=== PATIENT | female | born 1985 | race Caucasian/White ===

== ENCOUNTER 2024-05-13 07:35 | Inpatient (IN) | payer OTHER, SELFPAY ==
[2024-05-13] VITALS (22 sets, daily range): BP systolic 132–213; BP diastolic 82–114; BMI 39.5; BMI 39.0
[2024-05-13 08:34] LABS: % Basophils 0.5 % (0-2); % Eosinophils 0.5 % (0-6); % Immature Granulocytes 0.4 % (0-0.5); % Lymphocytes 19.9 % (20.5-51.1); % Monocytes 5.4 % (1.7-9.3); % Neutrophils 73.3 % (42.2-75.2); Absolute Basophils 0.1 10^3/uL (0-0.2); Absolute Eosinophils 0.1 10^3/uL (0-0.7); Absolute Lymphocytes 2.1 10^3/uL (1.2-3.4); Absolute Monocytes 0.6 10^3/uL (0.1-0.6); Absolute Neutrophils 7.8 10^3/uL (1.4-6.5); Hematocrit 36.7 % (37.0-47.0); Hemoglobin 12.3 g/dL (12.0-16.0); Mean Corp Hgb Conc. 33.5 g/dL (33.0-37.0); Mean Corpuscular Hgb 26.7 pg (27.0-31.0); Mean Corpuscular Volume 79.6 fL (81.0-99.0); Nucleated Red Blood Cells % 0 %; Platelet Count 195 10^3/uL (130-400); Red Blood Cell Count 4.61 10^6/uL (4.20-5.40); Red Cell Dist. Width 14.6 % (11.5-14.5); White Blood Cell Count 10.6 10^3/uL (4.8-10.8)
[2024-05-13] MEDS: TRANDATE 20 MG IV (08:40)
[2024-05-13] MEDS: MAGNESIUM SULFATE 100 IV (08:43)
[2024-05-13] MEDS: LR 1000 IV ×2 (08:46→15:30)
[2024-05-13] MEDS: TRANDATE 40 MG IV (08:53)
[2024-05-13 08:55] LABS: ALT (SGPT) 18 U/L (0-35); AST (SGOT) 35 U/L (14-36); Albumin 3.1 g/dl (3.5-5.0); Alkaline Phosphatase 176 U/L (38-126); Blood Urea Nitrogen 12 mg/dl (7-17); Calcium 8.8 mg/dl (8.4-10.2); Carbon Dioxide 17 mmol/L (22-30); Chloride 110 mmol/L (98-107); Estimated Creatinine Clearance 112 ml/min; Glucose 75 mg/dl (70-99); Potassium 4.9 mmol/L (3.5-5.1); Sodium 135 mmol/L (135-145); Total Bilirubin 0.3 mg/dl (0.2-1.3); Total Protein 6.1 g/dl (6.3-8.2); eGFR > 60.00
[2024-05-13] MEDS: MAGNESIUM SULFATE 40 GRAM 1000 IV (09:10)
[2024-05-13] MEDS: TRANDATE 80 MG IV (09:17)
[2024-05-13 09:20] LABS: Hepatitis B Surface Antigen Negative (Negative)
[2024-05-13] MEDS: APRESOLINE 10 MG IV (09:30)
[2024-05-13 09:36] LABS: Rubella Negative
[2024-05-13 09:37] LABS: Hepatitis C Antibody Negative (Negative)
[2024-05-13] MEDS: ANCEF 10 IV (10:07)
[2024-05-13] MEDS: BICITRA 30 ML PO (10:07)
[2024-05-13] MEDS: TYLENOL 1000 MG PO (10:07)
[2024-05-13 11:00] LABS: Amphetamines Negative (Negative); Barbiturates Negative (Negative); Benzodiazepines Negative (Negative); Buprenorphine Negative (Negative); Cocaine Negative (Negative); Marijuana Negative (Negative); Methadone Negative (Negative); Methamphetamines Negative (Negative); Opiates Negative (Negative); Phencyclidine Negative (Negative); Tricyclic Antidepressants Negative (Negative)
[2024-05-13] MEDS: PITOCIN 30 UNITS/NSS 500 ML IV (11:00)
[2024-05-13 11:46] LABS: Protein/creatinine Ratio 6.2; Urine Protein 470 mg/dl
--- NOTE | 2024-05-13 12:17 | CON.HOSP ---
Family Physician
-
Family Physician: Paola Hearn
Chief Complaint
-
Hypertension
History of Present Illness
39yo F with PMHx of GIST s/p resection came with 40weeks of for induction. Found hypertensive to 213/114. This is her first . BP was within normal limits during whole . Patient has no Hx of hypertension. On bedside
assessment - no visual changes, no headache, no SOB reported at the time of assessemnt as wwell as days prior. transaminases not elevated, however elevation of Alk.phos noted. Patient did not notice and RUQ pain. Had cesarian done and after subdural
- blood pressure improved to 130/70. Box Toe Maker called for assistance with BP control.
Patient received total dose of Labetalol 140mg and Hydralazine 10mg IV however with decrease of BP to 160/110
Medical History
Past Medical History
Past Medical History: Reports Other
Additional Past Medical History:
see HPI
Past Surgical History: Reports Other
Additional Past Surgical History:
See HPI
Social History
Tobacco: Non-smoker
Alcohol: None
Drug: None
Family History
Family History: Diabetes
Allergies / Home Medications
Allergies reflects when Allergies were last updated in [employer].
Home Medications with original date entered in [employer]
Allergy/Medication List:
Allergies
Allergy/AdvReac Type Severity Reaction Status Date / Time
No Known Allergies Allergy Verified 05/13/24 08:00
Home Medications
Vitamin 1 tab PO DAILY 05/13/24
Review of Systems
-
History Source: Patient
A 12 point Review of Systems was completed except as noted: Yes
Physical Exam
Vital Signs
Vital Signs
Temp Pulse Resp BP
97.7 F 77 20 198/105
05/13/24 08:02 05/13/24 09:30 05/13/24 08:02 05/13/24 09:30
Physical Exam
General: Well Developed, Well Nourished and No Apparent Distress
HEENT: Normocephalic, Anicteric and Moist Mucous Membranes
Respiratory: Clear; Negative Wheezes or Rales
Cardiac: S1/S2 and Regular Rhythm; Negative Tachycardia or Murmur
GI: Soft, Non Tender and Non Distended
Musculoskeletal: No Clubbing, No Cyanosis and No Edema
Skin: Warm; Negative Dry or Rash
Neuro: Awake, Alert, Oriented and AO x 3
Psych: Calm
Laboratory Results
-
Laboratory Results
05/13/24 08:24
05/13/24 08:24
Total Bilirubin 0.3 mg/dl (0.2-1.3) 05/13/24 08:24
AST 35 U/L (14-36) 05/13/24 08:24
ALT 18 U/L (0-35) 05/13/24 08:24
Alkaline Phosphatase 176 U/L (38-126) H 05/13/24 08:24
Data Reviewed
-
Lab Data: Labs Reviewed
Impression / Plan
-
A/P:
#Hypertensive urgency vs preeclampsia
With absent neurological symptoms
Magnesium infusion as per STEEPING PRESS TENDER
Since failed BB and hydralazine - start Nicardipine drip if BP still elevated to >160/105 to keep in 140-160 SBP range
Follow LFT, UA, BMP, CBC (monitor for thrombocytopenia)
Sodium restriction
Follow Mg level
#Elevated Alk.phos
US RUQ reasonable
#HAGMA
monitor BMP
#Obesity
Advise to establish weight loss plan
DVT ppx as per RAIL TRACK LAYER
FUll code
I have spent at least 78min reviewing chart, test results, communication with consultants anddirect patient care
[2024-05-13] MEDS: APRESOLINE 5 MG IV (14:27)
--- NOTE | 2024-05-13 15:26 | HPS.HSE ---
Family Physician
-
Family Physician: Paola Hearn
Chief Complaint
-
induction of labor
History of Present Illness
Patient is a 39yo @40.6 weeks who presents to labor and delivery for elective induction. On arrival, patient found to have BPs in the 200s/100s. She has no complaints. She denies headache, vision changes, chest pain, or shortness of breath or
RUQ pain. She has been having intermittent cramping, but no contractions. Denies VB or LOF. +FM.
complications:
- Transfer of care from [place] at 36wks- no records; likely lapses in care
- Advanced maternal age
- History of GIST tumor
- GBS positive
- Rubella non-immune
PMHx:GIST
Meds: denies
Surghx: GIST removed
NKDA
Socialhx: denies tobacco, etoh or illicit drug use
Famhx: non-contributory
OBHx:
labs: obtained on admission
Blood type: B+
UDS neg
HepBsAg neg
Rubella non-immune
GCCT neg
GBS positive
1hr never completed
Medical History
Past Medical History
Past Medical History: Reports Other
Additional Past Medical History:
GIST tumor
Past Surgical History: Reports Other
Additional Past Surgical History:
GIST tumor removed
Social History
Tobacco: Non-smoker
Alcohol: None
Drug: None
Family History
Family History: Not pertinent
Allergies / Home Medications
Allergies reflects when Allergies were last updated in [facility].
Home Medications with original date entered in [facility]
Allergy/Medication List:
NKDA
Meds: none
Review of Systems
-
A 12 point ROS was completed and negative except as noted: Yes
Physical Exam
Vital Signs
Vital Signs
Temp Pulse Resp BP
97.7 F 77 20 161/86
05/13/24 08:02 05/13/24 09:30 05/13/24 08:02 05/13/24 14:27
Physical Exam
General: Well Developed and Well Nourished
HEENT: NormoCephalic
Respiratory: Non Labored Respirations
Cardiac: Regular Rhythm
Genito-urinary: Other (SVE 3/80/-2, cephalic)
Skin: Warm and Dry
Neuro: Awake and Alert
Psych: Calm
Laboratory Results
-
05/13/24 08:24
05/13/24 08:24
Laboratory Results
Total Bilirubin 0.3 mg/dl (0.2-1.3) 05/13/24 08:24
AST 35 U/L (14-36) 05/13/24 08:24
ALT 18 U/L (0-35) 05/13/24 08:24
Alkaline Phosphatase 176 U/L (38-126) H 05/13/24 08:24
Impression/Plan
-
IMPRESSION:
Patient is a 39yo @40.6 presents for elective IOL, found to have PEC w/ SF
PLAN:
On arrival, patient's BPs 210-220s/100-110s. PEC labs were normal expected Pr/Cr 6.2. She was asymptomatic. Magnesium was started with 4g bolus and maintenance of 2g/hr. She was given 20, 40, and 80mg of IV labetalol and 10mg of IV hydralazine and
BPs remained in the 170s/90s. Given sustained severe range BPs despite multiple IV medications, decision was made to proceed with primary section. Risks, benefits and alternatives were discussed including bleeding, infection, damage to
surrounding structures and need for further operations. She was consented for a blood transfusion in case of emergency. Risks of blood transfusion discussed. Consents were signed. Medicine consult placed for help with BP management postop. Plan to
continue magnesium for 24hrs
--- NOTE | 2024-05-13 15:30 | OR.RPT ---
Addendum entered and electronically signed by Guerda Maddox DO 05/13/24 15:45:
Findings: loose nuchalx1, reduced at the level of the hysterotomy. There was a true knot in the umbilical cord.
Original Note:
Operative Report
Operative Report
Preop diagnosis: IUP @40.6, preeclampsia w/ severe features
Postop diagnosis: same
Procedure: primary low transverse section
Surgeon: Tan
Anesthesia: spinal
QBL: 400mL
Findings: Viable male infant born at 1039, with Apgars 5/8. No delayed cord clamping due to poor tone. Normal appearing uterus, bilateral fallopian tubes and ovaries.
Ty: clear yellow before and after the procedure
Complications: none
Counts correct times 2
Patient transferred to recovery room in stable condition
Indication: Patient is a 39yo @40.6 weeks who presents to labor and delivery for elective induction of labor. On arrival, she was found to have BPs in the 220s/110s. She was started on magnesium with a 4g bolus and 2g/hr of maintenance for
seizure prophylaxis. She was given 20, 40, and 80mg of IV labetalol and 10mg of IV hydralazine. Preeclampsia labs were normal with the exception of Pr/Cr 6.2. She was asymptomatic. Given sustained severe range blood pressures despite multiple IV
medications, decision was made to proceed with primary section. Risks, benefits and alternatives were discussed and all questions were answered prior to proceeding. Consents were signed. Anesthesia was notified. 2g of Ancef was ordered for
antibiotic prophylaxis.
Procedure: Patient was taken to the operating room where spinal anesthesia was administered and found to be adequate. 2g of Ancef was given for infection prophylaxis. The abdomen was prepped with ChloraPrep. The patient was draped in the normal
sterile fashion. She was placed in the dorsal supine position with a left lateral tilt. A Pfannenstiel incision was made with a 10 blade and carried down to the fascia with a scalpel. Hemostasis achieved with Bovie. The fascia was incised and
dissected laterally with Booth scissors. The superior aspect of the fascia was grasped with Pema clamps. The underlying rectus fascia was sharply dissected with the Booth scissors. In a similar fashion the inferior aspect of the fascia was elevated
with Pema clamps and the rectus muscle was dissected off with Booth scissors. The rectus muscles were down the midline to the level of the pubic symphysis with manual dissection. The peritoneum was bluntly entered and extended with manual
traction.
Quezada retractor and bladder blade were placed revealing good visualization of the bladder. The vesicouterine peritoneum was identified. A thin lower uterine segment was noted. The lower uterine segment was incised with a scalpel. Clear amniotic
fluid at entry into the uterine cavity. The uterine incision was extended bluntly with lateral and upward traction.
The fetus was in cephalic presentation. The head was elevated out of the pelvis with special attention paid to avoid using the uterine incision as a fulcrum. Gentle fundal pressure was applied one the head was brought to the incision. The head
delivered and the rest of the delivered without difficulty. Delayed cord clamping was not performed because has poor tone. The infant was handed off to the hand polisher. IV oxytocin was started to facilitate uterine contractions. The
placenta was delivered with gentle traction and uterine fundal massage. The uterus was exteriorized. Allis clamps were placed at the apices of the hysterotomy. The inside of the uterus was wiped with a lap sponge to assure complete removal of
placental membranes. Fundal massage was performed and uterus noted to be firm. The uterine incision was closed with 0 Vicryl in a running locked fashion. A horizontal imbricating stitch was done on the hysterotomy. The hysterotomy was inspected and
noted to be hemostatic. The uterus was placed back in the abdomen. Blood clots and fluid were wiped out of the abdomen and pelvis with moist laparotomy sponges. The hysterotomy was examined again and noted to be hemostatic.
The rectus muscles were inspected and noted to be hemostatic. The fascial layer was closed in a running continuous fashion using 0 Vicryl. The subcutaneous tissue was copiously irrigated and any small bleeding vessels were cauterized with Bovie
cautery. The subcutaneous tissue was reapproximated in a running continuous fashion with 2-0 Plain in 2 layers. The skin was closed with 4-0 Vicryl in a subcuticular fashion. The incision was covered with skin glue. The patient tolerated the
procedure well. All sponge and instrument counts were correct times two. The patient was taken to the recovery room in stable condition.
--- NOTE | 2024-05-13 16:41 | CON.INTV ---
Consultation
Consultation Request
Date/Time Consultation Requested: 05/13/2024
Date/Time Consultation Performed: 05/13/2024
Requesting Provider: Dr. Martinez
Performing Provider: Dr. Ben Ji
Reason for Consultation: Hypertensive crisis-preeclampsia
Medical History
-
History of Present Illness:
39-year-old woman G1, P0 presented to labor and delivery for induction. Patient was found to be hypertensive on arrival blood pressure 200s/100s patient had no complaints including headache, shortness of breath or abdominal pain.
Patient is considered advanced maternal age.
Given no response to antihypertensive agents, patient electively went for on 05/13/2024.
Remain hypertensive. Internal medicine was consulted. Has been getting intermittent IV and oral medications. Given persistently elevated blood pressures patient was transferred to the critical care unit for antihypertensive IV infusion.
Patient denies any history of hypertension.
Currently denies any symptoms at all other than feeling tired postoperatively.
Past Medical History
Past Medical History: Other (See assessment and plan)
Social History
Tobacco: Non-smoker
Alcohol: None
Drug: None
Family History
Family History: Reviewed & Not Pertinent
Allergies / Home Medications
Allergies
Allergy/AdvReac Type Severity Reaction Status Date / Time
No Known Allergies Allergy Verified 05/13/24 08:00
Home Medications
�Medication �Instructions �Recorded �Confirmed �Last Taken �Type
Vitamin 1 tab PO DAILY 05/13/24 05/13/24 05/13/24 06:30 History
Review of Systems
-
History Source: Patient
All other systems: Negative unless noted
Vitals / Labs / Diagnostic Testing
Vital Signs
Temp Pulse Resp BP
97.7 F 77 20 161/86
05/13/24 08:02 05/13/24 09:30 05/13/24 08:02 05/13/24 14:27
Lab Data
05/13/24 08:24
05/13/24 08:24
Microbiology
05/13/24 10:04 Urine Chlamydia trachomatis (PCR) - Final
05/13/24 10:04 Urine Neisseria gonorrhoeae (PCR) - Final
Diagnostic Testing:
Physical Exam
-
HEENT: Normocephalic and Other (Poor dentition)
Cardiovascular: S1/S2
Respiratory: Non-Labored Respirations
GI: Soft, Non Distended and Other ( incision is intact. Abdomen is soft)
Neurology: Awake, Alert and AO x 3
Skin: Warm
General: Comfortable
Assessment
-
39-year-old woman who came to the hospital for elective labor induction. Was found to be significantly hypertensive. Not responsive to intermittent IV medications. Semiemergent performed. Patient remained hypertensive despite magnesium
sulfate and IV labetalol and hydralazine. Transferred to the critical care unit 05/13/2024 for IV infusion
Hypertensive crisis-preeclampsia
Status post 05/13/2024
Proteinuria
Normal platelet count
Normal renal function
Normal transaminases
Patient asymptomatic: No headache or visual changes.
Conditions present prior admission:
Status post GIST tumor removal 2022
Patient takes no other medication other than vitamin
Obesity
Denies history of hypertension.
Assessment and plan:
Critically ill, transferred to the critical care unit 05/13/2024 for IV antihypertensive infusion due to persistent hypertension despite and multiple antihypertensive including magnesium as well
-
Asymptomatic: No evidence for target organ damage.
Normal renal function and liver function
Neurologically intact, denies headache or abdominal pain
Obtain chest x-ray AP and lateral.
Obtain EKG
-
Will continue to follow labs daily, CBC, LFT and BMP.
Transferred to the critical care unit 05/13/2024 for IV antihypertensive infusion.
Will titrate nicardipine drip to systolic pressure less than 160 mmHg. Hopefully to normotension in the next 24 to 48 hours.
Will use labetalol/hydralazine IV as needed.
May need oral antihypertensive. Will defer to primary team/internal medicine.
-
Analgesia postoperatively per primary team. Currently on NSAIDs as needed
Follow H&H
-
Monitor neurological status closely.
If there is evidence for headache may need to obtain CT of the head.
-
DVT prophylaxis with SCDs. May use Lovenox if okay with ROOF SERVICE TECHNICIAN.
-
N.p.o. for now
Health evaluation
-
Critical care statement: A total of 31 minutes of critical care time was provided for this patient today. This includes management of unstable vital signs, evaluation of the patient at bedside, reviewing the patient's pertinent medical records
including ventilator settings microbiology, laboratory evaluations and discussion with primary team, critical care nursing, and respiratory therapy.
[2024-05-13] MEDS: TORADOL 15 MG IV ×2 (16:48→21:45)
[2024-05-13] MEDS: CARDENE 200 IV (17:45)
[2024-05-13] MEDS: ZOFRAN 4 MG IV (18:24)
[2024-05-13 18:25] LABS: INR 0.98; PT 13.3 Sec (11.4-14.6)
[2024-05-13 18:26] LABS: APTT 25.4 Sec (23.4-35.0)
--- NOTE | 2024-05-13 18:31 | PTCARENOTE ---
patient received from [facility], assessments per work list. cardene intiated. patient denies pain,dyspnea or headache labs sent. abdominal incision intact, care provided, new peripad placed. elmore draining yellow urine. lungs clear. monitor nsr. abdomen
soft. reflexes and fundus check [email or web address]@[id number] by LDRP SIMRAN Santos. patient denied nausea, but after chest xray taken, had large belch then vomited fluid she had had for lunch. zofran administered with relief. call dominguez in reach
[2024-05-13 18:38] LABS: Magnesium 7.7 mg/dl (1.6-2.3)
--- NOTE | 2024-05-13 18:50 | PTCARENOTE ---
mag critical value received. call placed to LDRP RN, she stated this is 'where the MD wants it', she stated she would alert the MD
[2024-05-13 19:11] LABS: HIV Combo Negative (Negative)
--- NOTE | 2024-05-13 20:28 | PTCARENOTE ---
Assumed care of pt at 1900. Pt is A/O x4, pleasant and cooperative with care. Received pt on Cardene drip at 1.2mg/hr and Magnesium Sulfate infusion at 2gm/hr along with LR at 75ml/hr. SR 70s on monitor, SpO2 98% on RA. CS incision well approximated
with surgical adhesive present. Scant old blood noted on tiffanie-pad, pad left in place until LDRP RN here to assess patient. Pt reports that her pain is managed at this time, discussed that next dose of Toradol is due at 2200 and pt has other PRN meds
for pain, nausea, etc as well if she needs them. Pt verbalizes understanding. See nursing shift assesment flowsheet for full physical assessment details. Call dominguez and personal items within reach.
--- NOTE | 2024-05-13 21:41 | PTCARENOTE ---
Reflexes checked by Ashley DUTTON at around 2134, fundus checked as well, currently at umbilicus. Pad changed, pt set up to brush her teeth. Remains off Cardene drip.
--- NOTE | 2024-05-13 22:00 | PTCARENOTE ---
Lungs clear throughout, no adventitious sounds noted, SpO2 98% on RA, RR in teens.
[2024-05-14] VITALS (24 sets, daily range): BP systolic 128–176; BP diastolic 81–100; BMI 39.2
--- NOTE | 2024-05-14 01:13 | PTCARENOTE ---
Assessment unchanged. Reflexes checked at midnight by Ashley DUTTON, fundus checked as well. Scant blood on pad. Tiffanie care done, new tiffanie pad provided, draw sheet and pad changed. Remains off Cardene drip. Pt transported via wheelchair to nursery
by myself and Ashley DUTTON for pt to see her baby, from around 0020 to 0100. Pt now back in bed. Remains on magnesium sulfate infusion and LR. Pt denies pain at this time. SR 60s-70s on monitor.
--- NOTE | 2024-05-14 02:29 | PTCARENOTE ---
Lungs auscultated and DTR assessment done by ICU PRIVATE SECURITY GUARD at around 0210, no changes in assessment.
[2024-05-14] MEDS: APRESOLINE 5 MG IV ×3 (03:33→17:22)
[2024-05-14] MEDS: TORADOL 15 MG IV ×2 (03:33→09:50)
[2024-05-14] MEDS: MAGNESIUM SULFATE 40 GRAM 1000 IV (04:17)
[2024-05-14] MEDS: LR 1000 IV (04:17)
--- NOTE | 2024-05-14 04:33 | PTCARENOTE ---
399 assessment unchanged. Lungs clear. SR 70s on monitor. 98% on RA. Received dose of Hydralazine shortly after 329 (see EMAR) for systolic BP 165. DTR assessment done by ICU APPAREL PATTERN MAKER MARIJA Gómez. All DTR (triceps, biceps, brachioradialis,
pateller, achilles) have been 2+ bilaterally for all assessments thus far.
[2024-05-14 04:43] LABS: % Basophils 0.1 % (0-2); % Immature Granulocytes 0.6 % (0-0.5); % Lymphocytes 8.8 % (20.5-51.1); % Monocytes 4.6 % (1.7-9.3); % Neutrophils 85.9 % (42.2-75.2); Absolute Immature Granulocytes 0.1 10^3/uL (0-0.05); Absolute Lymphocytes 1.8 10^3/uL (1.2-3.4); Absolute Neutrophils 17.9 10^3/uL (1.4-6.5); Hematocrit 32.9 % (37.0-47.0); Hemoglobin 10.6 g/dL (12.0-16.0); Mean Corp Hgb Conc. 32.2 g/dL (33.0-37.0); Mean Corpuscular Hgb 26.6 pg (27.0-31.0); Mean Corpuscular Volume 82.7 fL (81.0-99.0); Mean Platelet Volume 12.8 fL (7.4-10.4); Nucleated Red Blood Cells % 0 %; Platelet Count 200 10^3/uL (130-400); Red Blood Cell Count 3.98 10^6/uL (4.20-5.40); Red Cell Dist. Width 14.7 % (11.5-14.5); White Blood Cell Count 20.8 10^3/uL (4.8-10.8)
--- NOTE | 2024-05-14 04:49 | W.PN.UPDATE ---
Update Note
Progress Note Update
Bedside examination, patient on magnesium gtt, reflexes were checked per protocol every 2 hours. Patient was transported during the night per patient request to visit with baby in the nursery/NICU.
General: Overall she appears healthy and in no apparent distress. She exhibits the usual difficulty and discomfort moving around postoperatively.
Abdomen: It has the normal post- appearance and the expected amount of tenderness. It is non-distended, normal active bowel sounds, fundus is firm at level of umbilicus.
Reflexes: 2+ and symmetric at the biceps, triceps, brachioradialis, patella, and Achilles bilaterally. (reflexes were checked per protocol every 2 hours)
[2024-05-14 05:27] LABS: ALT (SGPT) 17 U/L (0-35); AST (SGOT) 32 U/L (14-36); Albumin 2.9 g/dl (3.5-5.0); Alkaline Phosphatase 184 U/L (38-126); Blood Urea Nitrogen 10 mg/dl (7-17); Carbon Dioxide 15 mmol/L (22-30); Chloride 103 mmol/L (98-107); Direct Bilirubin 0.1 mg/dl (0.0-0.4); Estimated Creatinine Clearance > 125 ml/min; Glucose 91 mg/dl (70-99); Iron 45 ug/dl (37-170); Magnesium 9.1 mg/dl (1.6-2.3); Potassium 4.7 mmol/L (3.5-5.1); Sodium 129 mmol/L (135-145); Total Bilirubin 0.2 mg/dl (0.2-1.3); Total Protein 5.7 g/dl (6.3-8.2); eGFR > 60.00
[2024-05-14 05:33] LABS: Percent Saturation 10 % (20-50); Total Iron Binding Capacity 415 ug/dl (265-497)
[2024-05-14 05:45] LABS: Ferritin 13.2 ng/ml (6.24-137)
--- NOTE | 2024-05-14 06:20 | PTCARENOTE ---
0600: Lungs clear, DTR assessment done by ICU INBOUND TELEMARKETER. Scant amount of dried blood noted on tiffanie pad, fresh blood noted on inner thighs but not enough to go onto pad. Tiffanie care done. Ty removed. Mesh underwear + new pad given to patient. Pt's
magnesium level critical, Dr. Maddox notified over phone, order received to decrease magnesium sulfate infusion to 1gm/hr and to recheck mag level in [address] Maddox placed repeat lab order for 0900.
[2024-05-14] MEDS: PRENATAL PLUS 1 TABLET PO (08:45)
--- NOTE | 2024-05-14 08:59 | W.PN.HOSP.TC ---
Today's Communication/Plan
-
monitor labs
US RUQ
Calcium IV
start Nifedipine
Assessment / Plan
Assessment / Plan
39yo F with PMHx of GIST s/p resection came with 40weeks of for induction. Found hypertensive to 213/114 and with significant proteinuria meeting criteria for severe pre-eclampsia
A/P:
#Ppreeclampsia
With absent neurological symptoms
Magnesium infusion as per COTTON AGENT
COmpleted Nicardipine drip, managed on Hydralazine IV push as of 05/14/24, started on Mifedipine oral for briodging
Sodium restriction
Follow Mg level
#Elevated Alk.phos
US RUQ reasonable
follow LFT
No RUQ pain reported
#HAGMA
monitor BMP - stop IVF
#Hyponatremia
monitor off IVF
most likely 2/2 recent delivery
#Leukocytosis
most likely 2/2 recent delivery
No fever
monitor
#FABIOLA
advise iron upon d/c
#Hypermagnesemia 2/2 Mg drip
drip stopped
#Hypocalcemia
#Prolonged QTc
avoid QT prolonging agents
Calcium gluconate
follow BMP
#Obesity
Advise to establish weight loss plan
DVT ppx as per OCCASIONAL BABYSITTER
FUll code
I have spent at least 58min reviewing chart, test results, communication with consultants and direct patient care
Anticipated Discharge: 24 - 48 hours
Subjective/Interval History
-
Date of Service: May 14, 2024
Objective Data
-
Labs:
Laboratory Results
05/14/24
04:27
WBC 20.8 H
Hgb 10.6 L
Hct 32.9 L
Plt Count 200
Sodium 129 L
Potassium 4.7
Chloride 103
Carbon Dioxide 15 L
BUN 10
Creatinine 0.7
Glucose 91
Calcium 7.0 L D
Total Bilirubin 0.2
AST 32
ALT 17
Alkaline Phosphatase 184 H
Vital Signs:
Vital Signs
Temp Pulse Resp BP Pulse Ox
97.9 F 86 13 157/92 98
05/14/24 07:52 05/14/24 06:00 05/14/24 06:00 05/14/24 06:00 05/14/24 05:30
I&O
05/13/24 05/14/24 05/15/24
06:59 06:59 06:59
Intake Total 3213 / 3213
Output Total 1845 / 1845
Balance 1368 / 1368
Review of Systems
-
History Source: Patient
All other systems: Reviewed and negative
Physical Exam
-
General: No Apparent Distress
Respiratory: Negative Wheezes, Rales or Rhonchi
Cardiac: Regular Rhythm
GI: Soft
Musculoskeletal: No Clubbing, No Cyanosis and No Edema
Neuro: Awake, Alert, Oriented and AO x 3
Psych: Calm
--- NOTE | 2024-05-14 09:27 | PTCARENOTE ---
Mag gtt and IVF d/c'd per order. U/S ordered by MD after pt had breakfast. Needs to be NPO x6-8hrs. Dr Yanes notified. Will postpone until tomorrow am. Hypertensive this am (170s/90s) PRN Hydralazine given. New order received for Procardia.
Maternity RN came to bedside this am to assess fundus and reflexes.
Pt reports pain is tolerable. Denies need for additional pain meds.
[2024-05-14] MEDS: PROCARDIA XL (EXTENDED RELEASE) 60 MG PO (09:50)
[2024-05-14] MEDS: CALCIUM GLUCONATE 1000 MG IV (09:50)
--- NOTE | 2024-05-14 10:00 | W.PN.INTV ---
Today's Communication / Plan
Recommendations
Nicardipine will be restarted as needed
Nifedipine orally started
Hydralazine IV as needed
Labetalol IV as needed
Repeat CBC and BMP later today
Discontinue IV fluids
Encourage oral intake
Assessment
-
39-year-old woman who came to the hospital for elective labor induction. Was found to be significantly hypertensive. Not responsive to intermittent IV medications. Semiemergent performed. Patient remained hypertensive despite magnesium
sulfate and IV labetalol and hydralazine. Transferred to the critical care unit 05/13/2024 for IV infusion
Hypertensive crisis-preeclampsia
Status post 05/13/2024
Proteinuria
Normal platelet count
Normal renal function
Normal transaminases
Patient asymptomatic: No headache or visual changes.
Conditions present prior admission:
Status post GIST tumor removal 2022
Patient takes no other medication other than vitamin
Obesity
Denies history of hypertension.
Assessment and plan:
Critically ill, transferred to the critical care unit 05/13/2024 for IV antihypertensive infusion due to persistent hypertension despite and multiple antihypertensive including magnesium as well.
-
Asymptomatic: No evidence for target organ damage.
Neurologically intact. Denies headache
Normal renal function
Non-anion gap metabolic acidosis: Noted. Will follow-up
Hyponatremia
Hypocalcemia
Hypomagnesemia-status post magnesium sulfate infusion.
-
Encourage oral intake-tolerated diet
Will repeat labs later and replete as necessary.
-
Neurologically intact, denies headache or abdominal pain
Chest x-ray reviewed: Normal mediastinum. Low lung volumes. No acute infiltrates.
EKG: Reviewed normal sinus rhythm. Prolonged QT.
Will replete electrolytes. Repeat EKG later today or tomorrow morning.
-
Elevated alk phos: Follow-up.
Benign abdominal exam.
Normal transaminases.
-
CBC with leukocytosis: Possibly reactive postsurgery.
Mild anemia due to blood loss
Platelet count normal
Repeat CBC
-
Will continue nicardipine drip to maintain systolic blood pressure under 160mmHg-currently nicardipine is off. May need to be restarted if not responsive to IV labetalol.
Started on nifedipine per internal medicine
Will continue hydralazine and labetalol as needed for systolic blood pressure greater than 160 .
Will continue with Hemodynamic monitoring for the next 24 hours
-
Analgesia postoperatively per primary team. Currently on NSAIDs as needed
Follow H&H
-
DVT prophylaxis with SCDs. May use Lovenox if okay with MANAGER PSYCHOLOGY.
-
Advance diet
Discontinue IV fluids.
-
Critical care statement: A total of 31 minutes of critical care time was provided for this patient today. This includes management of unstable vital signs, evaluation of the patient at bedside, reviewing the patient's pertinent medical records
including ventilator settings microbiology, laboratory evaluations and discussion with primary team, critical care nursing, and respiratory therapy.
Subjective Dataa
Subjective Data
Date of Service:
Date of Service: May 14, 2024
Chief Complaint: Deportation Officer Follow Up (Hypertensive crisis-severe preeclampsia)
Subjective:
Remains asymptomatic overnight.
Denies abdominal pain.
Denies headache or blurry vision
Denies nausea or vomiting
No hematuria
Review of Systems
General: Fever (n)
Cardiopulmonary: Dyspnea (none at rest)
GI: Abdominal Pain (n)
Neuro: Headache (n)
Objective Data
Data Reviewed
Vital Signs / I&O / Oxygen:
Vital Signs
Temp Pulse Resp BP Pulse Ox
97.9 F 104 18 165/100 99
05/14/24 07:52 05/14/24 08:56 05/14/24 08:56 05/14/24 08:56 05/14/24 08:56
Intake and Output
05/13/24 05/14/24 05/15/24
06:59 06:59 06:59
Intake Total 3213 / 3338 375 / 375
Output Total 1845 / 1845 0 / 0
Balance 1368 / 1493 375 / 375
SaO2 99
Physical Exam
General: Comfortable
HEENT: Normocephalic
Cardiovascular: S1-S2
Respiratory: Non-Labored Respirations
GI: Non Distended
Neurology: Awake, Alert, AO x 3 and No Motor Deficits
Skin: Warm
Labs/Micro/Reports
Laboratory Results
05/13/24
18:02
PT 13.3
INR 0.98
APTT 25.4
Microbiology
05/13/24 10:04 Urine Chlamydia trachomatis (PCR) - Final
05/13/24 10:04 Urine Neisseria gonorrhoeae (PCR) - Final
[2024-05-14 10:36] LABS: Urine Albumin 2+ (Neg - Trace); Urine Bilirubin Negative (Negative); Urine Character Bloody (Clear); Urine Color Red; Urine Glucose Negative (Negative); Urine Ketone Negative (Negative); Urine Leukocyte 1+ (Negative); Urine Nitrite Negative (Negative); Urine Occult Blood 4+ (Negative); Urine Specific Gravity 1.015 (<1.030); Urine Urobilinogen Negative (Neg - 1+)
[2024-05-14 11:14] LABS: Urine Protein 247 mg/dl
[2024-05-14 11:24] LABS: Protein/creatinine Ratio 14.1
[2024-05-14] MEDS: TRANDATE 10 MG IV (11:29)
[2024-05-14 11:33] LABS: Urine Red Blood Cell >100 /HPF (0-2)
--- NOTE | 2024-05-14 11:43 | W.PN.OBG.DWH ---
Today's Communication / Plan
-
bp mgmt as per Dr. Ji
encourage IS
analg
oob to chair
consent for circ
Assessment/Plan
-
POD#1
PEC with SF
off cardene drip
Subjective Data
-
denies zapata, blurry vis, ruq pain, increase LE swelling
voided on own
no flatus/bm
Objective Data
-
Vital Signs
Temp Pulse Resp BP Pulse Ox
97.9 F 91 15 166/94 98
05/14/24 07:52 05/14/24 11:19 05/14/24 09:30 05/14/24 11:19 05/14/24 09:30
lungs cl
cor rrr
abd +bs soft, fundus firm nt
incis c/d/i
ext nt
adeq diuresis
--- NOTE | 2024-05-14 13:30 | PTCARENOTE ---
Pt transferred over to [facility] for on hour to visit baby from [phone] via w/c. RN remained with pt.
Pt ambulating with steady gait. Voiding without difficulty. Peripad changed x1.
Sinus rhythm. Lungs CTA. Incision C/D/I.
All other assessments unchanged.
[2024-05-14 14:35] LABS: Blood Urea Nitrogen 11 mg/dl (7-17); Calcium 7.2 mg/dl (8.4-10.2); Carbon Dioxide 15 mmol/L (22-30); Chloride 106 mmol/L (98-107); Estimated Creatinine Clearance > 125 ml/min; Glucose 140 mg/dl (70-99); Magnesium 5.1 mg/dl (1.6-2.3); Potassium 4.5 mmol/L (3.5-5.1); Sodium 131 mmol/L (135-145); eGFR > 60.00
[2024-05-14 14:38] LABS: % Basophils 0.1 % (0-2); % Eosinophils 0.1 % (0-6); % Immature Granulocytes 0.7 % (0-0.5); % Lymphocytes 10.5 % (20.5-51.1); % Monocytes 4.3 % (1.7-9.3); % Neutrophils 84.3 % (42.2-75.2); Absolute Immature Granulocytes 0.1 10^3/uL (0-0.05); Absolute Lymphocytes 1.7 10^3/uL (1.2-3.4); Absolute Monocytes 0.7 10^3/uL (0.1-0.6); Absolute Neutrophils 13.8 10^3/uL (1.4-6.5); Hematocrit 33.5 % (37.0-47.0); Hemoglobin 10.8 g/dL (12.0-16.0); Mean Corp Hgb Conc. 32.2 g/dL (33.0-37.0); Mean Corpuscular Hgb 26.9 pg (27.0-31.0); Mean Corpuscular Volume 83.5 fL (81.0-99.0); Nucleated Red Blood Cells % 0 %; Red Blood Cell Count 4.01 10^6/uL (4.20-5.40); Red Cell Dist. Width 15.1 % (11.5-14.5); White Blood Cell Count 16.3 10^3/uL (4.8-10.8)
[2024-05-14 15:03] LABS: ALT (SGPT) 17 U/L (0-35); AST (SGOT) 34 U/L (14-36); Albumin 2.9 g/dl (3.5-5.0); Alkaline Phosphatase 169 U/L (38-126); Direct Bilirubin 0.1 mg/dl (0.0-0.4); Total Bilirubin 0.2 mg/dl (0.2-1.3); Total Protein 5.5 g/dl (6.3-8.2)
[2024-05-14] MEDS: APRESOLINE 10 MG PO ×2 (15:52→22:25)
[2024-05-14 16:00] LABS: % Basophils 0.1 % (0-2); % Eosinophils 0.2 % (0-6); % Immature Granulocytes 0.4 % (0-0.5); % Monocytes 5.5 % (1.7-9.3); % Neutrophils 82.8 % (42.2-75.2); Absolute Immature Granulocytes 0.1 10^3/uL (0-0.05); Absolute Lymphocytes 1.8 10^3/uL (1.2-3.4); Absolute Monocytes 0.9 10^3/uL (0.1-0.6); Absolute Neutrophils 13.2 10^3/uL (1.4-6.5); Hematocrit 34.4 % (37.0-47.0); Hemoglobin 11.5 g/dL (12.0-16.0); Mean Corp Hgb Conc. 33.4 g/dL (33.0-37.0); Mean Corpuscular Hgb 27.3 pg (27.0-31.0); Mean Corpuscular Volume 81.5 fL (81.0-99.0); Mean Platelet Volume 12.6 fL (7.4-10.4); Nucleated Red Blood Cells % 0 %; Platelet Count 251 10^3/uL (130-400); Red Blood Cell Count 4.22 10^6/uL (4.20-5.40); Red Cell Dist. Width 15.3 % (11.5-14.5)
--- NOTE | 2024-05-14 16:08 | W.PN.UPDATE ---
Update Note
Progress Note Update
Patient off Nicardipine drip >12h, controlled on oral Nifedipine and hydralazine with occasional Hydralazine and Labetalol IV with BP<160/110. Alk.phos, leukocytosis and sodium are improving. Plt clumped on CBC but manual count adequate. Reasonable
to transfer to L&D as per discussion with BURNER TECHNICIAN. Repeat labs in AM
[2024-05-14] MEDS: MOTRIN 600 MG PO (18:41)
[2024-05-14] MEDS: TYLENOL 650 MG PO (18:41)
--- NOTE | 2024-05-14 21:30 | PTCARENOTE ---
Patient assessed in bed. AAOx4 and able to make her needs known. Denies numbness or tingling. MAEx4. Pupils are +3 and reactive. Pt's sinus tachy on the monitor with HR 104. Palpable pulses throughout. +2 generalized edema. Clear breath sounds. +BS.
[2024-05-15] MEDS: MOTRIN 600 MG PO ×4 (01:11→20:21)
[2024-05-15] MEDS: TYLENOL 650 MG PO ×4 (01:11→20:21)
--- NOTE | 2024-05-15 03:35 | PTCARENOTE ---
Patient's HR 120s-138. Called and spoke to SIMRAN Meade. Pt's oob to the bathroom per Halina.
[2024-05-15 06:24] LABS: % Basophils 0.2 % (0-2); % Eosinophils 0.2 % (0-6); % Immature Granulocytes 0.3 % (0-0.5); % Lymphocytes 16.1 % (20.5-51.1); % Monocytes 5.5 % (1.7-9.3); % Neutrophils 77.7 % (42.2-75.2); Absolute Lymphocytes 1.9 10^3/uL (1.2-3.4); Absolute Monocytes 0.7 10^3/uL (0.1-0.6); Absolute Neutrophils 9.2 10^3/uL (1.4-6.5); Hemoglobin 9.3 g/dL (12.0-16.0); Mean Corp Hgb Conc. 33.2 g/dL (33.0-37.0); Mean Corpuscular Hgb 26.6 pg (27.0-31.0); Nucleated Red Blood Cells % 0 %; Platelet Count 217 10^3/uL (130-400); Red Cell Dist. Width 15.5 % (11.5-14.5); White Blood Cell Count 11.9 10^3/uL (4.8-10.8)
[2024-05-15 07:01] LABS: ALT (SGPT) 15 U/L (0-35); AST (SGOT) 30 U/L (14-36); Albumin 2.6 g/dl (3.5-5.0); Alkaline Phosphatase 153 U/L (38-126); Blood Urea Nitrogen 11 mg/dl (7-17); Calcium 8.1 mg/dl (8.4-10.2); Carbon Dioxide 20 mmol/L (22-30); Chloride 110 mmol/L (98-107); Estimated Creatinine Clearance > 125 ml/min; Glucose 66 mg/dl (70-99); Potassium 4.4 mmol/L (3.5-5.1); Sodium 136 mmol/L (135-145); Total Bilirubin 0.2 mg/dl (0.2-1.3); Total Protein 5.2 g/dl (6.3-8.2); eGFR > 60.00
[2024-05-15] MEDS: PRENATAL PLUS 1 TABLET PO (08:31)
[2024-05-15] MEDS: SENOKOT-S 1 TABLET PO (08:31)
[2024-05-15] MEDS: PROCARDIA XL (EXTENDED RELEASE) 90 MG PO (08:31)
--- NOTE | 2024-05-15 09:08 | PTCARENOTE ---
pt aox4, no complaints at this time. nsr to sinus tachy on monitor. s1 s2. tachycardic in 130s-140s when ambulating to bathroom. lungs clear.
--- NOTE | 2024-05-15 10:40 | W.PN.HOSP.TC ---
Today's Communication/Plan
-
Nifedipine increased, Hydralazine stopped
D/C instructions updated
Internst will sign off
Please call if BP becomes unconbtrolled again
Assessment / Plan
Assessment / Plan
39yo F with PMHx of GIST s/p resection came with 40weeks of for induction. Found hypertensive to 213/114 and with significant proteinuria meeting criteria for severe pre-eclampsia, weaned off Nicardipine drip to Nifedipine ER oral, BP
remained <160/100 without further IV meds. Oral hydralazine stopped and Nifedipine dose increased. Patient was instructed for daily home BP monitoring and to follow with her PCP. Known FABIOLA - recommended to follow with PCP for possible IV infusions
as patient already on oral iron supplements and still remains iron-deficiennt. Recommended to repeat LFT, H&H in 1 week upon d/c with PCP - patient verbalized understanding of the instructions. With improved BP - ladies underwear operator will sign off. Further
monitoring and mgmt as per CLINICAL LAW PROFESSOR
A/P:
#Ppreeclampsia
With absent neurological symptoms
Magnesium infusion as per CLINICAL LAW PROFESSOR completed
COmpleted Nicardipine drip, managed on Hydralazine IV push as of 05/14/24, started on Nifedipine oral for bridging
Sodium restriction
#Elevated Alk.phos
improving post-cesarian
follow LFT ad outpatient
No RUQ pain reported
#HAGMA
resolved
#Hyponatremia
resolved
most likely 2/2 recent delivery
#Leukocytosis
resolving, almost normalized WBC
most likely 2/2 recent delivery
No fever
monitor
#FABIOLA
advise iron upon d/c
#Hypermagnesemia 2/2 Mg drip
drip stopped
#Hypocalcemia
#Prolonged QTc
resolving
avoid QT prolonging agents
Calcium gluconate
follow BMP
#Obesity
Advise to establish weight loss plan
DVT ppx as per STRIKE OFF MACHINE OPERATOR
FUll code
I have spent at least 38min reviewing chart, test results, communication with consultants and direct patient care
Anticipated Discharge: 24 - 48 hours
Subjective/Interval History
-
Date of Service: May 15, 2024
Objective Data
-
Labs:
Laboratory Results
05/15/24 05/15/24
05:24 06:10
WBC Cancelled 11.9 H
Hgb Cancelled 9.3 L
Hct Cancelled 28.0 L
Plt Count Cancelled 217
Sodium Cancelled 136
Potassium Cancelled 4.4
Chloride Cancelled 110 H
Carbon Dioxide Cancelled 20 L
BUN Cancelled 11
Creatinine Cancelled 0.7
Glucose Cancelled 66 L
Calcium Cancelled 8.1 L
Total Bilirubin Cancelled 0.2
AST Cancelled 30
ALT Cancelled 15
Alkaline Phosphatase Cancelled 153 H
Vital Signs:
Vital Signs
Temp Pulse Resp BP Pulse Ox
97.7 F 93 15 151/92 98
05/14/24 12:00 05/15/24 08:31 05/14/24 09:30 05/15/24 08:31 05/14/24 09:30
I&O
05/14/24 05/15/24 05/16/24
06:59 06:59 06:59
Intake Total 3213 / 3338 375 / 375
Output Total 1845 / 1845 0 / 0
Balance 1368 / 1493 375 / 375
Review of Systems
-
History Source: Patient
All other systems: Reviewed and negative
Physical Exam
-
General: No Apparent Distress
HEENT: Normocephalic and Atraumatic
Respiratory: Clear to Auscultation
Cardiac: Regular Rhythm
GI: Soft, Nontender and Nondistended
Musculoskeletal: No Clubbing, No Cyanosis and No Edema
Psych: Calm
--- NOTE | 2024-05-15 12:00 | PTCARENOTE ---
tele monitor d/c by md per [facility] RN. [facility] rn removed monitor and notified this rn
[2024-05-16] MEDS: TYLENOL 650 MG PO ×3 (01:59→19:57)
[2024-05-16] MEDS: MOTRIN 600 MG PO ×3 (01:59→19:56)
[2024-05-16] MEDS: APRESOLINE 10 MG PO ×2 (02:58→08:51)
[2024-05-16 08:24] LABS: RPR, Progressive Non-Reactive (NonReactive)
[2024-05-16] MEDS: PRENATAL PLUS 1 TABLET PO (08:51)
[2024-05-16] MEDS: PROCARDIA XL (EXTENDED RELEASE) 90 MG PO (08:51)
[2024-05-16] MEDS: FEOSOL 325 MG PO (08:54)
[2024-05-16] MEDS: TRANDATE 200 MG PO ×2 (08:55→19:51)
--- NOTE | 2024-05-16 09:02 | CON.CAR ---
Addendum entered and electronically signed by Elisabeth Cantu MD 05/16/24 12:03:
I saw and examined the patient.
The Auto Fleet Manager's note was reviewed and I agree with the note.
Comment: Patient's exam is stable. She is . Blood pressure has now improved on multiple medications. She has no symptoms. EKG is normal
Will decrease hydralazine to 25 twice daily. Continue labetalol and Procardia.
I discussed at length with the patient and her who is at the bedside how to check home blood pressures twice daily. They will obtain a blood pressure cuff.
They should call the office if blood pressure consistently greater than 150 mmHg systolic or consistently less than 105 mmHg systolic.
Hydralazine should be held if blood pressure less than 130 mmHg systolic.
Await echocardiogram.
If patient remains stable she may be discharged to home with checked by our office over the phone at the end of the week and close follow-up.
Original Note:
Consultation
Consultation Request
Date/Time Consultation Requested: 05/16/24
Date/Time Consultation Performed: 05/16/24
Requesting Provider: Dr. Maddox of General Agent
Performing Provider: Dr. Elisabeth Cantu
Reason for Consultation: Preeclampsia with highr risk features
Medical History
-
History of Present Illness:
Patient came to for a planned induction on 05/11/24 and ended up having a due to preeclampsia and cardiology is now consulted to help managed BP. Patient reports that she was followed at an [facility] affiliated with [facility], but that she had
issues with billing and transitioned cared to [facility] and was seen by them in the office at 37 weeks. Patient reports that during her time with the [facility] group that she had her urine checked with each visit and BP checked and that she was not told of
abnormalities. Patient says that at her Ob visit on 05/11/24 that she was told she had protein in her urine, but her BP was normal at that time and no vision changes or edema. Patient was arranged to have a scheduled admission for induction at 40
weeks and came to as planned on 05/13/24. Patient reports that her BP was elevated from the time of admission and that her blood sugars were high. Plan changed from induction to . Patient was started on magnesium gtt and given
labetalol IV push doses. Patient had spinal anesthesia for her and BP improved, but then worsened again. Patient transferred to the ICU and placed on Cardene gtt. BP eventually improved and patient was transitioned to PO meds and was
transferred back to [facility]. Patient ordered nifedipine ER 90 mg daily and hydralazine 10 mg TID at time of cardiology consultation. Patient denies a h/o HTN, but was noted to be intermittently HTN when she was admitted with GIST resection in 2022.
Patient reports that her PCP has never reported concerns about HTN. Patient currently upset because she is worried about her being d/c'd to home and that she will have to remain in the hospital. No EUGENE, no chest pain, no orthopnea.
PMH:
Possible h/o HTN
h/o GIST with distal gastrectomy and Juan-en-Y gastrojejunostomy 08/19/22
Past Medical History
Past Medical History: Other (in HPI)
Past Surgical History: Bowel Resection (GIST tumor with Distal gastrectomy Juan-en-y gastrojejunostomy 08/19/22) and (05/16/24)
Social History
Tobacco: Non-Smoker
Alcohol: None
Drug: None
Personal: Partner
Living: With Family
Employment: Employed
Family History
Family History: Hypertension (mother) and Other (No FH of preeclampsia)
Allergies / Home Medications
Allergy/AdvReac Type Severity Reaction Status Date / Time
No Known Allergies Allergy Verified 05/13/24 08:00
�Medication �Instructions �Recorded �Confirmed �Type
Vitamin 1 tab PO DAILY 05/13/24 05/13/24 History
Review of Systems
-
History Source: Patient and Family ( helping with HPI in room)
All other systems: Negative unless noted
Physical Exam
Vital Signs
Temp Pulse Resp BP Pulse Ox
97.7 F 110 15 173/108 98
05/14/24 12:00 05/16/24 02:58 05/14/24 09:30 05/16/24 02:58 05/14/24 09:30
GEN: Initially tearful then NAD. AAOx3
HEENT: EOMI, MMM
LUNGS: RA. CTA B/L, no wheezes or rales
CV: Tachycardic. Reg, S1/S2, no murmur
ABD: soft, BS+, NT, ND
EXT: +1-2 pitting B/L LE edema. No clubbing, cyanosis or lesions B/L
NEURO: Gross non-focal
SKIN: Warm, dry and pink. No rash
Lab Results
05/15/24 06:10
05/15/24 06:10
Impression / Plan
-
PCP: Dr. Paola Hearn
Cardiology: None
General Agent: [place] [facility] until transition to [facility] at 37 weeks
Impression:
Preeclampsia with high risk features
Possible h/o HTN
Abnormal ECG with prolonged QTc
Elevated alkaline phosphatase
Direct admission for plans induction at 40 weeks 05/13/24
Anemia
h/o GIST with distal gastrectomy and Juan-en-Y gastrojejunostomy 08/19/22
Echo 05/16/24: Study pending
Plan:
-Patient came to for a planned induction on 05/11/24 and ended up having a due to preeclampsia and cardiology is now consulted to help managed BP. Patient reports that she was followed at an General Agent affiliated with [facility], but that she had
issues with billing and transitioned cared to [facility] and was seen by them in the office at 37 weeks. Patient reports that during her time with the [facility] group that she had her urine checked with each visit and BP checked and that she was not told of
abnormalities. Patient says that at her Ob visit on 05/11/24 that she was told she had protein in her urine, but her BP was normal at that time and no vision changes or edema. Patient was arranged to have a scheduled admission for induction at 40
weeks and came to as planned on 05/13/24. Patient reports that her BP was elevated from the time of admission and that her blood sugars were high. Plan changed from induction to . Patient was started on magnesium gtt and given
labetalol IV push doses. Patient had spinal anesthesia for her and BP improved, but then worsened again. Patient transferred to the ICU and placed on Cardene gtt. BP eventually improved and patient was transitioned to PO meds and was
transferred back to [facility]. Patient ordered nifedipine ER 90 mg daily and hydralazine 10 mg TID at time of cardiology consultation. Patient denies a h/o HTN, but was noted to be intermittently HTN when she was admitted with GIST resection in 2022.
Patient reports that her PCP has never reported concerns about HTN. Patient currently upset because she is worried about her infant being d/c'd to home and that she will have to remain in the hospital. No EUGENE, no chest pain, no orthopnea.
-ECG on admission reviewed by me, looks like SR with prolonged QTc, but no ischemic changes.
-Recheck ECG now, ordered by me
-Check echo, ordered.
-Patient initially given labetalol IV pushes and then improved BP after spinal anesthesia, but then worse and transferred to ICU for Cardene. Now out of ICU and ordered nifedipine ER 90 mg daily and hydralzine 10 mg TID. Will add labetalol 200 mg
BID with a dose NOW.
-Increase hydralazine to 25 mg TID
-Talked with patient and her partner at length about plans for 3 meds to manage her HTN for now and that as BP improves as an outpatient we can wean meds.
[2024-05-16] MEDS: ADACEL 0.5 ML IM (10:54)
[2024-05-16] MEDS: M-M-R II 0.5 ML SC (10:55)
[2024-05-16 12:30] VITALS: BP 114/70
--- NOTE | 2024-05-16 12:38 | CM ---
Met with mom Kaitlynn and dad Jason at bedside
Mom reports she lives in an apartment with her mother, father and brother
Mom reports began her PNC at [facility] and then [facility]
Per mom - Family supportive, Father of baby supportive and involved
Parents have named their Alvin Bowles
Mom reports she has supplies for including car seat, crib and clothing
Lens Fabricating Machine Tender for - [facility]
WINDOWS SYSTEMS ENGINEER - mom will follow at [facility]
Mom given information for WIC and [facility]. Encouraged Mom to participate in program - Mom reported she will review
Mom also informed she can self-refer to the program
CM remains available for discharge needs
--- NOTE | 2024-05-16 14:46 | W.PN.UPDATE ---
Update Note
Progress Note Update
Back into see patient and update her on echo results. With help of OB nursing was able to access OB trace view system and see that BP at 1230 was 114/70 and heart rate 108. Patient overall feels symptomatically improved. Plan for now is to
continue labetalol 200 mg twice daily, nifedipine ER 90 mg daily and hydralazine 25 mg twice daily. We have placed hold parameters on the hydralazine for SBP less than 130. Plan after discussion with OB earlier today was for observation through
the day and then likely discharge to home tomorrow if BP remains stable. Cardiology follow-up placed on patient's chart.
[2024-05-16 16:00] VITALS: BP 148/96
[2024-05-16] MEDS: ATARAX 25 MG PO (19:45)
[2024-05-16] MEDS: APRESOLINE 25 MG PO (19:51)
[2024-05-17] MEDS: TYLENOL 650 MG PO ×2 (04:48→10:51)
[2024-05-17] MEDS: MOTRIN 600 MG PO ×2 (04:48→10:51)
[2024-05-17] MEDS: PROCARDIA XL (EXTENDED RELEASE) 90 MG PO (05:46)
[2024-05-17] MEDS: APRESOLINE 25 MG PO ×2 (05:47→12:30)
[2024-05-17] MEDS: TRANDATE 200 MG PO (05:47)
[2024-05-17] MEDS: FEOSOL 325 MG PO (07:38)
[2024-05-17] MEDS: PRENATAL PLUS 1 TABLET PO (07:38)
--- NOTE | 2024-05-17 09:22 | W.PN.CARDCBS ---
Today's Communication / Plan
-
Blood pressure improved this morning after medications in the 120s.
Would repeat around lunch and if stable okay for discharge.
Discharged on nifedipine 90 mg daily, labetalol 200 mg twice daily, and hydralazine 25 mg p.o. twice daily.
Blood pressure will likely improve over the next several weeks significantly.
Will arrange follow-up in cardiology office in 1 to 2 weeks.
Impression / Plan
-
PCP: Dr. Paola Hearn
Cardiology: None
Oyster Bed Worker: [place] [facility] until transition to [facility] at 37 weeks
Impression:
Preeclampsia with high risk features
Possible h/o HTN
Abnormal ECG with prolonged QTc
Elevated alkaline phosphatase
Direct admission for plans induction at 40 weeks 05/13/24
Anemia
h/o GIST with distal gastrectomy and Juan-en-Y gastrojejunostomy 08/19/22
Echo 05/16/24: EF 55-60%, no signif valve disease
Plan:
BP improved this morning after giving meds.
Would repeat this after noon and if stable okay for discharge. Will discharge on nifedipine ER 90 mg daily and hydralzine 25 mg BID and labetalol 200 mg BID
-Talked with patient and her partner at length about plans for 3 meds to manage her HTN for now and that as BP improves as an outpatient we can wean meds.
Will arrange follow-up. We did discuss watching for signs of hypotension.
Progress Note - Urgent Care
Subjective
Date of Service: May 17, 2024
had some flushing at night. Much improved today.
Objective
Labs:
05/15/24 06:10
05/15/24 06:10
Labs
Hgb 9.3 g/dL (12.0-16.0) L 05/15/24 06:10
Hct 28.0 % (37.0-47.0) L 05/15/24 06:10
Plt Count 217 10^3/uL (130-400) 05/15/24 06:10
PT 13.3 Sec (11.4-14.6) 05/13/24 18:02
INR 0.98 05/13/24 18:02
APTT 25.4 Sec (23.4-35.0) 05/13/24 18:02
Sodium 136 mmol/L (135-145) 05/15/24 06:10
Potassium 4.4 mmol/L (3.5-5.1) 05/15/24 06:10
BUN 11 mg/dl (7-17) 05/15/24 06:10
Creatinine 0.7 mg/dL (0.6-1.0) 05/15/24 06:10
Glucose 66 mg/dl (70-99) L 05/15/24 06:10
Vital Signs and I&O:
Vital Signs
Temp Pulse Resp BP Pulse Ox
97.7 F 107 18 186/105 98
05/14/24 12:00 05/17/24 05:47 05/16/24 16:00 05/17/24 05:47 05/14/24 09:30
Vital Signs
Temp Pulse Resp BP Pulse Ox
97.7 F 107 18 186/105 98
05/14/24 12:00 05/17/24 05:47 05/16/24 16:00 05/17/24 05:47 05/14/24 09:30
Intake & Output
05/15/24 05/16/24 05/17/24 05/18/24
06:59 06:59 06:59 06:59
Intake Total 375 / 375
Output Total 0 / 0
Balance 375 / 375
Physical Exam
Physical Exam
GEN: No distress, awake, Ox3
HEENT: supple, anicteric, mmm
LUNGS: CTA, no wheezes/rales
CV: Reg, S1/S2, no murmur
ABD: soft, BS+, NT/ND
EXT: No edema
NEURO: Gross non-focal
SKIN: No rash
[2024-05-17] MEDS: SENOKOT-S 1 TABLET PO (10:51)
--- NOTE | 2024-05-17 13:46 | W.DS.TRANS ---
DC Summary - Barge Pilot
-
Discharge Instructions:
Discharge Diagnosis/Procedures 40wks 6days; severe preeclampsia;
class 3 obesity, anemia
Diet Low Sodium
Activity No strenuous activity
Driving Restrictions No driving for 2 weeks
Bathing Restrictions OK to Shower
Instructions:
Stand-Alone Forms: [facility] Delivery
[facility] Hypertensive Disorders
Changes to Home Medications: No
Discharge Medications:
DC Medications w/original date entered in [place]
Vitamin 1 tab PO DAILY 05/13/24
acetaminophen 325 mg tablet 650 mg (2 x 325 mg) PO Q4HPRN PRN mild pain #0 tabs 05/17/24
ferrous sulfate 325 mg (65 mg iron) tablet (FeroSul) 325 mg PO DAILY #30 tabs 05/17/24
hydralazine 25 mg tablet 25 mg PO TID #90 tabs 05/17/24
ibuprofen 600 mg tablet 600 mg PO Q6HPRN PRN cramps #30 tabs 05/17/24
labetalol 200 mg tablet 200 mg PO BID #60 tabs 05/17/24
labetalol 200 mg tablet 200 mg PO BID #60 tabs 05/17/24
nifedipine 30 mg tablet,extended release 90 mg (3 x 30 mg) PO DAILY #90 tabs 05/17/24
Home Medication Changes
Pending Results: Yes
Additional Pending Results:
placental pathology
Total time spent discharging patient (in min): 30
[2024-05-17] MEDS: TRANDATE 100 MG PO (13:47)
== END 2024-05-17 15:16 | disposition home or self-care (01) | DRG 788 ==
LOC: LDRP 07:35
PROVIDERS: ADMITTING PHYSICIAN Student in an Organized Health Care Education/Training Program; CONSULT PHYSICIAN Internal Medicine Cardiovascular Disease; FAMILY PHYSICIAN Family Medicine; OTHER PHYSICIAN Internal Medicine; OTHER PHYSICIAN Internal Medicine Critical Care Medicine
PROC: 10D00Z1 Extraction of Products of Conception, Low, Open Approach (ICD-10-PCS; 2024-05-13)
PROC: 3E0234Z Introduction of Serum, Toxoid and Vaccine into Muscle, Percutaneous Approach (ICD-10-PCS; 2024-05-16)
DX: O48.0 Post-term pregnancy (principal); O14.14 Severe pre-eclampsia complicating childbirth; Z37.0 Single live birth; O99.214 Obesity complicating childbirth; E66.813 Obesity, class 3; O99.824 Streptococcus B carrier state complicating childbirth; O69.2XX0 Labor and delivery complicated by other cord entanglement, with compression, not applicable or unspecified; O69.81X0 Labor and delivery complicated by cord around neck, without compression, not applicable or unspecified; O90.81 Anemia of the puerperium; D50.9 Iron deficiency anemia, unspecified; R94.31 Abnormal electrocardiogram [ECG] [EKG]; Z3A.40 40 weeks gestation of pregnancy; Z85.831 Personal history of malignant neoplasm of soft tissue; Z23 Encounter for immunization
CPT/HCPCS: 88307; 71045; 80053; 80306; 81003; 81015; 82248; 82570; 82728; 83540; 83550; 83735; 84156; 85025; 85610; 85730; 86592; 86762; 86780; 86803; 86850; 86900; 86901; 87086; 87340; 87389; 87491; 87591; 90707; 90715; 93005; 93306